=== PATIENT | female | born 1975 | race Caucasian/White ===

== ENCOUNTER 2021-03-22 12:51 | Emergency (ER) | payer OTHER ==
[~2021-03-22] VITALS: Ht 167.6 cm; Wt 63.5 kg
[2021-03-22 14:14] LABS: HEMOGLOBIN 11.2 gm/dl (12.3-15.3); RED BLOOD COUNT 3.87 M/UL (4.00-5.10); WHITE BLOOD COUNT 19.3 K/UL (4.5-11.0)
[2021-03-22 23:26] LABS: ACINETOBACTER BAUMANNII Not Detected (Negative); CANDIDA ALBICANS Not Detected (Negative); CANDIDA KRUSEI Not Detected (Negative); CANDIDA TROPICALIS Not Detected (Negative); ENTEROCOCCUS Not Detected (Negative); ESCHERICHIA COLI Not Detected (Negative); HAEMOPHILUS INFLUENZAE Not Detected (Negative); KLEBSIELLA OXYTOCA Not Detected (Negative); KLEBSIELLA PNEUMONIAE Not Detected (Negative); KPC-CARBAPENEM-RESISTANCE GENE Not Detected (Negative); PROTEUS Not Detected (Negative); PSEUDOMONAS AERUGINOSA Not Detected (Negative); SERRATIA MARCESANS Not Detected (Negative); STAPHYLOCOCCUS Not Detected (Negative); STAPHYLOCOCCUS AUREUS Not Detected (Negative); STREP PYOGENES (GROUP A) Not Detected (Negative); mecA (METHICILLIN RESIST GENE Not Detected (Negative); vanA/B (VANCOMYCIN RESIST GENE Not Detected (Negative)
[2021-03-23 01:20] LABS: STREP AGALACTIAE (GROUP B) DETECTED (Negative); STREPTOCOCCUS DETECTED (Negative)
[2021-03-23 10:22] LABS: HEMOGLOBIN 11.1 gm/dl (12.3-15.3); RED BLOOD COUNT 3.8 M/UL (4.00-5.10); WHITE BLOOD COUNT 16.4 K/UL (4.5-11.0)
[2021-03-24 19:35] LABS: HEMOGLOBIN 9.4 gm/dl (12.3-15.3); WHITE BLOOD COUNT 19.9 K/UL (4.5-11.0)
[2021-03-24 19:38] LABS: RED BLOOD COUNT 3.28 M/UL (4.00-5.10)
[2021-03-24 20:03] LABS: BUN/CREATININE RATIO 17 (0-10)
== END 2021-03-24 22:30 | disposition short-term general hospital (02) ==
LOC: ER1 12:51 → CDU 18:32 → ER1 18:32
PROVIDERS: Emergency Medicine
DX: M60.052 Infective myositis, left thigh (principal); M00.9 Pyogenic arthritis, unspecified; K21.9 Gastro-esophageal reflux disease without esophagitis; F17.200 Nicotine dependence, unspecified, uncomplicated
CPT/HCPCS: 71045; 73700; 80053; 80202; 85025; 85652; 86140; 87040; 87077; 87150; 87186; 96374; 96375; 96376; 99285; J2270; J2405; J2543; J3370; J7030; J7070

== ENCOUNTER 2022-05-09 18:33 | Observation (INO) | payer OTHER ==
[~2022-05-09] VITALS: Ht 167.6 cm; Wt 86.2 kg
[2022-05-09 20:01] LABS: HEMOGLOBIN 11.9 gm/dl (12.3-15.3); RED BLOOD COUNT 4.01 M/UL (4.00-5.10); WHITE BLOOD COUNT 7.3 K/UL (4.5-11.0)
[2022-05-09 20:22] LABS: BUN/CREATININE RATIO 15 (0-10)
[2022-05-10 10:34] LABS: MONONUCLEAR CELLS 62.2 %; POLYMORPHONUCLEAR 37.8 %; RBC (AUTOMATED) 4200 10^6; WBC (AUTOMATED) 82 10^3
[2022-05-10] MEDS ORDERED: OMEPRAZOLE40 MG PO (13:02)
[2022-05-10] MEDS ORDERED: SEROQUEL50 MG PO (13:02)
[2022-05-10] MEDS ORDERED: ONDANSETRON ODT4 MG PO (13:02)
[2022-05-10] MEDS ORDERED: VIIBRYD20 MG PO (13:03)
[2022-05-10] MEDS ORDERED: SUBOXONE 8 MG-1 EACH SL (13:03)
[2022-05-11 06:20] LABS: HEMOGLOBIN 10.4 gm/dl (12.3-15.3)
[2022-05-11 06:27] LABS: RED BLOOD COUNT 3.51 M/UL (4.00-5.10)
[2022-05-11 07:10] LABS: BUN/CREATININE RATIO 19 (0-10)
[2022-05-12 05:03] LABS: HEMOGLOBIN 10.9 gm/dl (12.3-15.3); RED BLOOD COUNT 3.68 M/UL (4.00-5.10); WHITE BLOOD COUNT 4.8 K/UL (4.5-11.0)
[2022-05-12 05:57] LABS: BUN/CREATININE RATIO 19 (0-10)
[2022-05-12] MEDS ORDERED: OMNICEF 300 MG300 MG PO (10:46)
[2022-05-12] MEDS ORDERED: TYLOPHEN500 MG PO (10:46)
[2022-05-13 19:11] LABS: HBSAG SCREEN Negative (Negative); HCV AB >11.0 (0.0-0.9); HEP A AB, IGM Negative (Negative); HEP B CORE AB, IGM Negative (Negative); HEPATITIS C QUANTITATION HCV Not Detected IU/mL (.)
== END 2022-05-12 14:54 | disposition home or self-care (01) ==
LOC: ER1 18:33 → CDU 05-10 12:07 → MED SURG 4 05-10 12:07
PROVIDERS: Family Medicine; Internal Medicine; Physician Assistant; ADMIT Internal Medicine Infectious Disease
DX: M25.551 Pain in right hip (principal); N30.00 Acute cystitis without hematuria; S32.021A Stable burst fracture of second lumbar vertebra, initial encounter for closed fracture; R74.01 Elevation of levels of liver transaminase levels; F17.210 Nicotine dependence, cigarettes, uncomplicated; F41.9 Anxiety disorder, unspecified; F32.A Depression, unspecified; F19.10 Other psychoactive substance abuse, uncomplicated; Z20.822 Contact with and (suspected) exposure to COVID-19; Z88.5 Allergy status to narcotic agent; Z86.79 Personal history of other diseases of the circulatory system; X58.XXXA Exposure to other specified factors, initial encounter
CPT/HCPCS: 0240U; 36415; 71045; 72132; 73502; 80048; 80053; 80074; 80202; 80307; 81001; 82962; 83605; 83735; 84100; 85025; 85652; 86140; 87040; 87070; 87077; 87086; 87186; 87205; 89051; 96374; 96375; 96376; 97161; 97166; 99285; G0378; J0692; J2543; J3370; J7030; J7070; Q9967